=== PATIENT | male | born 1940 | race Caucasian/White ===

== ENCOUNTER → 2018-10-16 15:15 | Outpatient (CLI) | payer MEDICARE, BC, SELFPAY ==
--- NOTE | 2018-10-16 15:20 | DI.US.S_ITS ---
PROCEDURE: US CAROTID DOPPLER BI INDICATIONS: NONRHEUMATIC TRICUSPID VALVE TECHNIQUE: Color and pulse Doppler interrogation was performed of both carotid systems, with image documentation and velocity measurements. COMPARISON: [facility], , CAROTID ARTERY DOPPLER BILAT, 12/03/2014, 16:24. FINDINGS: Stenosis calculations are based on SRU (Society of Radiologists in Ultrasound) criteria. Right side: Brachial blood pressure: 130/88 mm Hg. Common carotid artery peak systolic velocity: 81 cm/sec. Internal carotid artery peak systolic velocity: 73 cm/sec. Internal carotid artery end diastolic velocity: 30 cm/sec. External carotid artery peak systolic velocity: 68 cm/sec. ICA/CCA peak systolic ratio: 0.9. Cha scale imaging description: Minimal soft plaque Percent internal carotid artery stenosis: Less than 50% stenosis. Vertebral artery: Flow direction is antegrade. Left side: Brachial blood pressure: 121/82 mm Hg. Common carotid artery peak systolic velocity: 91 cm/sec. Internal carotid artery peak systolic velocity: 69 cm/sec. Internal carotid artery end diastolic velocity: 28 cm/sec. External carotid artery peak systolic velocity: 54 cm/sec. ICA/CCA peak systolic ratio: 0.8 Cha scale imaging description: Minimal soft plaque Percent internal carotid artery stenosis: Less than 50% stenosis. Vertebral artery: Flow direction is antegrade. IMPRESSION: Less than 50% stenosis at the proximal internal carotid arteries bilaterally. Vertebral arterial flow is antegrade in direction. Dictated by: Lance Davis M.D. on 10/16/2018 at 17:23 Approved by: Lance Davis M.D. on 10/16/2018 at 17:24
--- NOTE | 2018-10-16 15:20 | DI.ECHO.S_ITS ---
[facility] +---------+ : : [address] : : : : [id number] : : : : Phone: [phone] +---------+ Echocardiogram Report + + :Name: JARRETT WYNN Study Date: 10/16/2018 Height: 69 in : :[facility] Weight: 186 lb : : Gender: Male BSA: 2.0 m2 : :: 1940 Age: 78 yrs BP: 121/82 mmHg: :Reason For Study: Tricuspid Valve - Regurgitation : :Ordering Physician: Jessica : :Gisela Sharpe Performed By: Michelle Edi : + + Interpretation Summary The patient was in normal sinus rhythm during the exam. The patient had frequent PVCs during the exam. The left ventricle is normal in size. The ejection fraction is estimated to be 55-60%. The right ventricle is normal in size and function. The aortic valve is mildly calcified. Decrease excursion off left coronary cusp without any significant aortic stenosis. There is mild aortic regurgitation. Compared to the prior echo study, there has been no change in the severity of aortic regurgitation. There is mild to moderate tricuspid regurgitation. Compared to the prior echo exam, there has been a decrease in TR severity. The right ventricular systolic pressure is estimated to be at least 23 mmHg based on an estimated right atrial pressure of 3 mm Hg. Procedure: A two-dimensional transthoracic echocardiogram with color flow and Doppler was performed. The study quality was technically adequate. Comparison is made with the echocardiogram of 02/13/2012. The patient had frequent PVCs during the exam. The patient was in normal sinus rhythm during the exam. Left Ventricle: The left ventricle is normal in size. There is normal left ventricular wall thickness. There is no thrombus. The ejection fraction is estimated to be 55-60%. There is a mild dyssynchronous contraction pattern, consistent with a conduction abnormality. MV E/A: 0.67 Med Peak E' Tristin: 3.2 cm/sec E/E' med: 17.9. Right Ventricle: The right ventricle is normal in size and function. Atria: The left atrium is mildly dilated. Right atrial size is normal. The right atrium has mildly decreased in size since the prior echo exam. There is no Doppler evidence for an interatrial shunt. Mitral Valve: The mitral valve leaflets are mildly calcified. There is trace mitral regurgitation. Compared to the prior echo study, there has been a decrease in the severity of mitral regurgitation. Aortic Valve: The aortic valve is trileaflet. The aortic valve is mildly calcified. Decrease excursion off left coronary cusp without any significant aortic stenosis. There is mild aortic regurgitation. Compared to the prior echo study, there has been no change in the severity of aortic regurgitation. Tricuspid Valve: The tricuspid valve leaflets are thin and pliable. There is mild to moderate tricuspid regurgitation. The right ventricular systolic pressure is estimated to be at least 23 mmHg based on an estimated right atrial pressure of 3 mm Hg. Compared to the prior echo exam, there has been a decrease in TR severity. Pulmonic Valve: The pulmonic valve is not well visualized. There is trace pulmonic regurgitation. Great Vessels: The aortic root is normal size. The ascending aorta is mildly enlarged. The aortic arch is at the upper limits of normal in size. The IVC is of normal diameter and collapses greater than 50% with a sniff. This suggests a low right atrial pressure of 3 mm Hg. Pericardium/ Pleura There is no pericardial effusion. MMode/2D Measurements & Calculations LVIDd: 4.7 cm LVOT diam: 2.3 cm LVIDs: 3.3 cm Ao root diam: 3.4 cm FS: 29.9 % Aortic Jxn: 2.6 cm EPSS: 0.68 cm asc Aorta Diam: 3.6 cm IVSd: 0.92 cm Ao Arch Diam (Prox Trans): 3.2 cm LVPWd: 1.0 cm LV higginbotham. diameter/BSA (cm/m^2): 2.3 LV sys. diameter/BSA (cm/m^2): 1.6 LA A2 area: 20.9 cm2 RA long axis: 5.3 cm LA A4 area: 20.5 cm2 RA area: 16.6 cm2 LA length (vol): 4.8 cm RA vol: 44.2 ml LA vol: 76.1 ml RA : 22.0 ml/m2 LA vol index: 38.0 ml/m2 IVC diam: 1.7 cm RVD1 (basal): 4.0 cm RVD2 (mid): 2.5 cm TAPSE: 2.4 cm Doppler Measurements & Calculations Ao V2 max: 169.9 cm/sec LVOT Max Tristin: 62.3 cm/sec Ao V2 mean: 107.3 cm/sec LV V1 max P.6 mmHg Ao max P.6 mmHg LV V1 VTI: 12.4 cm Ao mean P.2 mmHg СЕРГЕЙ(I,D): 1.5 cm2 Ao V2 VTI: 32.7 cm СЕРГЕЙ(V,D): 1.5 cm2 sev ratio: 0.38 СЕРГЕЙ indexed to BSA (cm^2/m^2): 0.76 AI P1/2t: 674.1 msec AI dec slope: 216.1 cm/sec2 MV E max tristin: 56.7 cm/sec TR max tristin: 223.2 cm/sec MV A max tristin: 85.2 cm/sec TR max P.9 mmHg MV E/A: 0.67 PA V2 max: 85.2 cm/sec Med Peak E' Tristin: 3.2 cm/sec PA V2 mean: 59.0 cm/sec E/E' med: 17.9 PA mean P.5 mmHg Lat Peak E' Tristin: 4.0 cm/sec PA Accel Time: 0.08 sec E/E' lat: 14.2 E/e' average: 16.1 MV dec time: 0.24 sec MV P1/2t: 69.9 msec MV P1/2t max tristin: 56.8 cm/sec SV(LVOT): 50.0 ml MVA(P1/2t): 3.1 cm2 Reading Physician:11:52 AM
== END ==
PROVIDERS: Visit Provider Internal Medicine Cardiovascular Disease
DX: I08.2 Rheumatic disorders of both aortic and tricuspid valves (principal); I65.23 Occlusion and stenosis of bilateral carotid arteries; I77.89 Other specified disorders of arteries and arterioles
CPT/HCPCS: 93306; 93880

== ENCOUNTER → 2019-04-21 11:58 | Outpatient (CLI) | payer MEDICARE, BC, SELFPAY ==
[2019-04-21 13:22] LABS: Cholesterol 214 mg/dL (140-199); HDL Cholesterol 52 mg/dL (40-60); LDL Cholesterol Calculated 145 mg/dL (<100); Triglycerides 87 mg/dL (35-150)
== END ==
PROVIDERS: Referring Provider Internal Medicine Cardiovascular Disease; Visit Provider Internal Medicine Cardiovascular Disease
DX: E78.5 Hyperlipidemia, unspecified (principal)
CPT/HCPCS: 36415; 80061

== ENCOUNTER → 2019-10-26 11:59 | Outpatient (CLI) | payer MEDICARE, BC, SELFPAY ==
[2019-10-26 13:55] LABS: Magnesium 2.2 mg/dL (1.6-2.3)
== END ==
PROVIDERS: Referring Provider Internal Medicine Cardiovascular Disease; Visit Provider Internal Medicine Cardiovascular Disease
DX: I10 Essential (primary) hypertension (principal); R00.2 Palpitations
CPT/HCPCS: 36415; 83735

== ENCOUNTER → 2022-10-15 12:02 | Outpatient (CLI) | payer MEDICARE, BC, SELFPAY ==
[2022-10-15 13:02] LABS: Blood Urea Nitrogen 17 mg/dL (9-20); Calcium 9.3 mg/dL (8.4-10.2); Carbon Dioxide 29 mmol/L (22-32); Chloride 100 mmol/L (98-107); Estimated Glomerular Filt Rate > 60 mL/min (>60); Glucose 95 mg/dL (80-110); HEMOLYSIS < 15 (0-50); Potassium 4.4 mmol/L (3.4-5.1); Sodium 135 mmol/L (137-145)
[2022-10-15 13:30] LABS: Thyroid Stimulating Hormone 2.06 uIU/mL (0.47-4.68)
== END ==
PROVIDERS: PCP Family Medicine; Referring Provider Internal Medicine Cardiovascular Disease; Visit Provider Internal Medicine Cardiovascular Disease
DX: I10 Essential (primary) hypertension (principal); R00.1 Bradycardia, unspecified
CPT/HCPCS: 36415; 80048; 83735; 84443

== ENCOUNTER → 2023-04-05 07:49 | Outpatient (CLI) | payer MEDICARE, BC, SELFPAY ==
--- NOTE | 2023-04-05 07:51 | DI.ECHO.S_ITS ---
[facility]---------+ [facility] +---------+ : : [address] : [address] : : : : [id number] : : : : Phone: [phone] +---------+ Echocardiogram Report + + :Name: JARRETT WYNN Study Date: 04/05/2023 Height: 69.5 in: :[facility] ReadingLocation: Weight: 180 lb : : Gender: Male BSA: 2.0 m2 : :: 1940 Age: 82 yrs BP: 143/89 mmHg: :Reason For Study: ATRIAL FIBRILLATION : :Ordering Physician: Estephania KNOWLESformed By: Bea Pretty : :Referring: ZACARIAS KNOWLES : + + Interpretation Summary Normal sinus rhythm with frequent PVC's. Normal LV size and wall thickness; normal wall motion and LV systolic function. EF is 50-55%. Normal chamber sizes. Aortic sclerosis without stenosis and mild associated regurgitation. Mild-moderate mitral regurgitation in the setting of normal leaflets. Estimated PA systolic pressure is 30 mm Hg assuming RA pressure of 3 mm Hg Compared to prior study 10/16/2018 PVC's are more frequent. Procedure: A two-dimensional transthoracic echocardiogram with color flow and Doppler was performed. The study quality was technically adequate. Comparison is made with the echocardiogram of 10/16/2018. The patient had frequent PVCs during the exam. The heart rate ranged between 58-80 bpm during the study. Left Ventricle: The left ventricle is normal in size and wall thickness. The ejection fraction is estimated to be 50-55%. Diastolic function could not be accurately assessed due to contradictory data. Pulmonary vein diastolic dysfunction; normal E/e' ratio. Right Ventricle: The right ventricle is normal in size and function. Atria: The left atrial size is normal. Right atrial size is normal. There is no Doppler evidence for an interatrial shunt. Mitral Valve: The mitral valve leaflets are mildly calcified. There is mild to moderate mitral regurgitation. Aortic Valve: The aortic valve is trileaflet. The aortic valve is slightly calcified. There is mild aortic valve sclerosis. There is no hemodynamically significant valvular aortic stenosis. There is mild aortic regurgitation. Tricuspid Valve: The tricuspid valve is normal in structure and function. There is mild to moderate tricuspid regurgitation. The right ventricular systolic pressure is estimated to be at least 30 mmHg based on an estimated right atrial pressure of 3 mm Hg. Pulmonic Valve: The pulmonic valve leaflets are thin and pliable; valve motion is normal. There is mild pulmonic regurgitation. Great Vessels: The aortic root is normal size. The dimensions of the ascending aorta are normal. The IVC is of normal diameter and collapses greater than 50% with a sniff. This suggests a low right atrial pressure of 3 mm Hg. Pericardium/ Pleura There is no pericardial effusion. There is no pleural effusion. MMode/2D Measurements & Calculations LVIDd: 4.5 cm LVOT diam: 2.4 cm LVIDs: 3.0 cm Ao root diam: 3.3 cm FS: 33.6 % asc Aorta Diam: 3.7 cm IVSd: 0.78 cm Ao Arch Diam (Prox Trans): 3.2 cm LVPWd: 0.83 cm LV higginbotham. diameter/BSA (cm/m^2): 2.2 LV sys. diameter/BSA (cm/m^2): 1.5 LA A2 area: 20.8 cm2 RA long axis: 5.7 cm LA A4 area: 19.0 cm2 RA area: 18.2 cm2 LA length (vol): 5.2 cm RA vol: 49.2 ml LA vol: 64.9 ml RA : 24.8 ml/m2 LA vol index: 32.7 ml/m2 IVC diam: 1.7 cm RVD1 (basal): 3.9 cm RVD2 (mid): 2.7 cm TAPSE: 2.4 cm Doppler Measurements & Calculations Ao V2 max: 176.7 cm/sec LVOT Max Tristin: 83.1 cm/sec Ao V2 mean: 112.5 cm/sec LV V1 max P.8 mmHg Ao max P.6 mmHg LV V1 VTI: 18.2 cm Ao mean P.9 mmHg СЕРГЕЙ(I,D): 2.6 cm2 Ao V2 VTI: 31.4 cm СЕРГЕЙ(V,D): 2.1 cm2 sev ratio: 0.58 СЕРГЕЙ indexed to BSA (cm^2/m^2): 1.3 MV E max tristin: 71.7 cm/sec TR max tristin: 261.7 cm/sec MV A max tristin: 64.6 cm/sec TR max P.4 mmHg MV E/A: 1.1 PA V2 max: 136.3 cm/sec Med Peak E' Tristin: 6.8 cm/sec PA V2 mean: 92.9 cm/sec E/E' med: 10.6 PA mean P.9 mmHg Lat Peak E' Tristin: 8.1 cm/sec PA pr(Accel): 41.3 mmHg E/E' lat: 8.9 E/e' average: 9.7 MV dec time: 0.22 sec MR ERO: 0.09 cm2 MR PISA: 1.5 cm2 SV(LVOT): 82.2 ml MR flow rate: 49.4 cm3/sec MR PISA radius: 0.49 cm Electronically signed by: Tarah Isaac M.D. on Reading Physician:04/06/2023 05:32 AM
--- NOTE | 2023-04-06 00:46 | DI.NM.S_ITS ---
DATE OF SERVICE: PROCEDURE: Exercise perfusion study. INDICATIONS: Paroxysmal AFib, PVCs, fatigue. RADIOPHARMACEUTICAL: 26.9 mCi technetium-99m Myoview IV was injected at stress and 12.5 mCi technetium-99m Myoview injected at rest. CARDIAC STRESS: Patient underwent exercise perfusion study under the supervision of an attending staff. He walked on Dick protocol for 5 minutes and 32 seconds, achieved maximum heart rate of 147, which was 106% of target heart rate, normal blood pressure response. Resting blood pressure 118/84 and peak systolic blood pressure 162. Diastolic blood pressure reported to be 98. Baseline rhythm sinus with ventricular trigeminy. During stress, no convincing ischemic EKG changes seen. Overall, PVCs burden decreased, patient has intermittent PACs which persistent in recovery. No obvious AFib or sustained ventricular tachycardia. No chest pain or anginal symptoms. The patient felt fatigue. RAW DATA: There is increased subdiaphragmatic activity. Cannot rule out spleen enlargement. GATED STUDY: Resting LV ejection fraction 69% and stress LV ejection fraction 70% without any obvious wall motion abnormalities. Resting end- diastolic volume 93 mL. TID ratio 1.08, which is within normal limits. Lung/heart ratio 0.45, which is within normal limits. MYOCARDIAL PERFUSION SCAN: Stress supine, resting supine and stress prone images were compared to each other. Stress supine and resting supine images revealed moderate size, mildly decreased perfusion of inferior wall extending into the inferoapex, which significantly improved during stress prone images, suggestive of diaphragmatic tissue attenuation artifact. No convincing ischemia infarction. CONCLUSION: I will call this study likely a normal myocardial perfusion study with evidence of diaphragmatic tissue attenuation artifact, which resolved during stress prone images. Fair exercise tolerance. Overall, normal hemodynamic response. No anginal symptoms. The patient felt fatigue. Baseline ventricular trigeminy. During exercise, overall PVCs burden reduced; however, patient developed PACs. No obvious AFib or sustained ventricular tachycardia. Overall, low-risk myocardial perfusion scan. On gated study, cannot rule out spleen enlargement. Correlate clinically. 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
== END ==
LOC: ECHO 07:50
PROVIDERS: PCP Family Medicine; Referring Provider Internal Medicine Cardiovascular Disease; Visit Provider Internal Medicine Cardiovascular Disease
DX: I08.3 Combined rheumatic disorders of mitral, aortic and tricuspid valves (principal); I48.0 Paroxysmal atrial fibrillation; I49.3 Ventricular premature depolarization; R53.83 Other fatigue
CPT/HCPCS: 78452; 93017; 93306; A9502

== ENCOUNTER → 2024-01-28 07:45 | Outpatient (CLI) | payer MEDICARE, BC, SELFPAY ==
[2024-01-28 08:58] LABS: Add Manual Diff / Slide Review NO; Basophils Absolute Auto 100 /uL (0-100); Eosinophils Absolute Auto 100 /uL (0-450); Eosinophils Percent Auto 2.3 % (2-4); Hemoglobin 15.2 g/dL (13.5-17.5); Lymphocytes Absolute Auto 1500 /uL (1100-4500); Lymphocytes Percent Auto 25.9 % (25-40); Mean Corpuscular HGB Conc 34.6 % (30-36); Mean Corpuscular Hemoglobin 29.4 PG (26-34); Monocytes Absolute Auto 800 /uL (0-900); Monocytes Percent Auto 13.3 % (3-14); Neutrophils Absolute Auto 3300 /uL (1500-7000); Neutrophils Percent Auto 57.5 % (50-75); Platelet Count 181 X10^3/uL (150-400); Red Blood Cell Count 5.18 X10^6/uL (4.5-5.9); Red Cell Distribution Width 13.6 % (11.6-14.8); White Blood Cell Count 5.7 X10^3/uL (4.5-11.0)
[2024-01-28 09:37] LABS: High Sensitivity CRP - Cardiac 1.3 mg/L (1.0-3.0)
== END ==
PROVIDERS: Internal Medicine Cardiovascular Disease; PCP Family Medicine; Referring Provider Ophthalmology; Visit Provider Ophthalmology
DX: H53.122 Transient visual loss, left eye (principal)
CPT/HCPCS: 36415; 85025; 86140

== ENCOUNTER → 2025-02-19 13:35 | Outpatient (CLI) | payer MEDICARE, BC, SELFPAY ==
[2025-02-19 14:28] LABS: Cholesterol 189 mg/dL (140-199); HDL Cholesterol 49 mg/dL (40-60); Triglycerides 201 mg/dL (35-150)
[2025-02-19 15:00] LABS: TSH w/ Reflex to FT4 0.25 uIU/mL (0.47-4.68)
[2025-02-19 15:03] LABS: Prostate Specific Antigen < 0.064 ng/mL (0.10-4.00)
[2025-02-19 18:45] LABS: Free T4, Direct Thyroxine 1.78 ng/dL (0.78-2.19)
== END ==
PROVIDERS: PCP Family Medicine; Referring Provider Family Medicine; Visit Provider Family Medicine
DX: E03.9 Hypothyroidism, unspecified (principal); C61 Malignant neoplasm of prostate; E78.2 Mixed hyperlipidemia; Z85.46 Personal history of malignant neoplasm of prostate
CPT/HCPCS: 36415; 80061; 84153; 84439; 84443